=== PATIENT | female | born 1935 | race Asian ===

== ENCOUNTER 2022-07-23 13:56 | Emergency (ER) | payer MEDICARE, OTHER ==
[~2022-07-23] VITALS: Ht 154.9 cm; Wt 51.0 kg
[2022-07-23] MEDS ORDERED: CLOP75TA60 PO (14:05)
[2022-07-23] MEDS ORDERED: METO25 PO (14:05)
[2022-07-23] MEDS ORDERED: ACETAMINOPHEN 325 MG TABLET PO ONE (14:15)
[2022-07-23] MEDS ORDERED: LIDOCAINE 5% TRANSDERMAL PATCH TD ONE (14:15)
[2022-07-23] MEDS ORDERED: LIDO700A15 TP (15:15)
[2022-07-23] MEDS ORDERED: AZIT-103 PO (15:15)
[2022-07-23] MEDS ORDERED: AZITHROMYCIN 500 MG TABLET PO ONE (15:15)
[2022-07-23 15:48] VITALS: BP 141/69
== END 2022-07-23 15:49 | disposition home or self-care (01) ==
LOC: EMS 13:57
DX: S20.211A Contusion of right front wall of thorax, initial encounter (principal); J18.9 Pneumonia, unspecified organism; I10 Essential (primary) hypertension; W18.09XA Striking against other object with subsequent fall, initial encounter; Y93.89 Activity, other specified; Y92.89 Other specified places as the place of occurrence of the external cause; Y99.8 Other external cause status
CPT/HCPCS: 99284; 71250; 73562; G0238; Q9967; 94799; Z7502; Z7610